=== PATIENT | female | born 1970 | race Caucasian/White ===

== ENCOUNTER 2021-08-08 11:43 | Emergency (ER) | payer OTHER, SELFPAY ==
[2021-08-08 11:44] VITALS: BP 211/98; PULSE 114; RESP 18; TEMP 37.2; O2SAT 96; BMI 30.9
--- NOTE | 2021-08-08 12:01 | ED_ITS ---
ED Disposition Clinical Impression: Corneal abrasion, left Qualifiers: Encounter type: initial encounter Qualified Code(s): S05.02XA - Injury of conjunctiva and corneal abrasion without foreign body, left eye, initial encounter Disposition: Home, Self-Care Condition on Discharge: Good Instructions: DI for Corneal Abrasion Additional Instructions: Use erythromycin ointment in left eye 4 times a day. Ibuprofen as needed for pain. Do not wear contact lenses until examined by an eye doctor and cleared to wear them again. Additional instructions for EYE PAIN or INJURY: Follow up with an staff nurse icu resource team as soon as possible. Return to the emergency department if severe pain, loss of vision, pus drainage, severe swelling or redness of eyelids. [facility]: Dr. Cruz, Dr. Melendez, Dr. Ortiz [address] [place] [address] Referrals: Andrés Hardwick MD [Primary Care Provider] - - Critical Care Critical Care Time: No Attestation: On 08/08/21, the high probability of a clinically significant, sudden or life threatening deterioration of the following system(s) required my full and direct attention, intervention and personal management. The time I documented below is in addition to time spent performing reported procedures but includes the following listed in this critical care notation. Medical Decision Making - Alfonso Inquiry Pt receiving controlled substance: No General Adult HPI - General Stated complaint: possible contact stuck in left eye Time Seen by Provider: 08/08/21 11:50 - History of Present Illness HPI narrative: Patient thinks she might have a contact stuck in her left eye. She wears soft contact lenses. She inserted her lenses last night. She slept in them overnight. She was able to remove her right eye contact lens this morning but could not find her left eyelids. She complains of pain in her left eye and thinks she might of scratched her eye. She gets her contact lenses by mail order, does not have an eye doctor. [facility] History - Hepatitis A Screen Attestation statement:: This patient has been screened for Hepatitis A risk factors. I have reviewed the patient's past medical history: Yes ROS Obtained: Yes Systems reviewed as appropriate & no additional complaints - Eyes Eyes: Denies change in vision, Reports irritation Physical Exam - General General appearance: alert, in no apparent distress - Expanded Eye Exam Eyelids: bilateral: normal inspection Pupils: Bilateral: regular, round Sclera/Conjunctival: left: injection Anterior chamber: bilateral: normal inspection Comment: Lids everted, no foreign bodies found. Upper lid swept with moistened Q-tip. Eye examined with slit lamp and fluorescein staining. No foreign bodies found. There are numerous tiny abrasions over the inferior half of her left cornea. No large abrasions. No foreign bodies found. Contact lens not found. - Respiratory Respiratory exam: Absent: respiratory distress - Cardiovascular Cardiovascular exam: Present: regular rate - Neurological Exam Neurological exam: Present: alert - Psychiatric Psychiatric exam: Present: normal affect - Skin Skin exam: Present: warm, dry
[2021-08-08 12:08] VITALS: BP 211/98; PULSE 113; O2SAT 98
[2021-08-08 12:10] VITALS: BP 215/111
[2021-08-08 12:12] VITALS: BP 211/98; PULSE 114; RESP 18; TEMP 37.2; O2SAT 96
== END 2021-08-08 12:54 | disposition home or self-care (01) ==
PROVIDERS: Emergency Provider Emergency Medicine; PCP Internal Medicine
DX: S05.02XA Injury of conjunctiva and corneal abrasion without foreign body, left eye, initial encounter (principal)
CPT/HCPCS: 99281